=== PATIENT | male | born 1975 | race Caucasian/White ===

== ENCOUNTER 2019-05-07 07:42 | Emergency (ER) | payer OTHER ==
[~2019-05-07] VITALS: Ht 182.9 cm; Wt 91.0 kg
[2019-05-07] MEDS ORDERED: SODIUM CHLORIDE 0.9% 1,000 ML IV ONE (09:01)
[2019-05-07] MEDS ORDERED: KETOROLAC 30MG/ML VIAL IV ONE (09:15)
[2019-05-07 09:35] LABS: BASOPHILS % 0.3 % (0.0-2.0); EOSINOPHILS % 1.8 % (0.0-5.0); HEMATOCRIT. 40.2 % (42.0-52.0); HEMOGLOBIN. 13.9 g/dL (14.0-18.0); LYMPHOCYTES % 9.9 % (20.0-50.0); MEAN CORPUSCULAR HEMOGLOBIN 30.8 pg (28.0-32.0); MEAN CORPUSCULAR VOLUME 89.1 fL (80.0-94.0); MEAN PLATELET VOLUME 10.1 fl (7.4-10.4); MONOCYTES % 6.5 % (2.0-8.0); NEUTROPHILS % 81.5 % (40.0-76.0); PLATELET 171 x1000/uL (130-400); RED BLOOD CELL COUNT 4.51 mill/uL (4.7-6.1); RED CELL DISTRIBUTION WIDTH 13.6 % (11.6-14.6)
[2019-05-07 09:42] LABS: CHLORIDE 107 mEq/L (98-107)
[2019-05-07 09:46] LABS: ETHANOL BLOOD 108 mg/dL
[2019-05-07] MEDS ORDERED: IOHEXOL-350 100 ML BOTTLE ONE (10:52)
[2019-05-07] MEDS ORDERED: ASPIRIN 81MG TABLET PO ONE (11:30)
[2019-05-07] MEDS ORDERED: SODIUM CHLORIDE 0.45% 1,000 ML IV SCH (11:43)
[2019-05-07] MEDS ORDERED: DIPHENHYDRAMINE 50MG/ML VIAL IV PRN (11:45)
[2019-05-07] MEDS ORDERED: LORAZEPAM 2MG/ML CPJ IV PRN (11:45)
[2019-05-07] MEDS ORDERED: DOCUSATE SODIUM 100MG CAPSULE PO PRN (11:45)
[2019-05-07] MEDS ORDERED: HYDROCODONE/ACETAMINOPHEN 5/325MG TABLET PO PRN (11:45)
[2019-05-07] MEDS ORDERED: MAGNESIUM/ALUMINUM HYDROXIDE/SIMETHICONE 30ML UDC PO PRN (11:45)
[2019-05-07] MEDS ORDERED: GUAIFENESIN 200MG/10ML SUGAR FREE UDC PO PRN (11:45)
[2019-05-07] MEDS ORDERED: CLONIDINE 0.1MG TABLET PO PRN (11:45)
[2019-05-07] MEDS ORDERED: ENOXAPARIN 40MG/0.4ML SYR SUBCUT SCH (11:45)
[2019-05-07] MEDS ORDERED: NA PHOS,M-B/NA PHOS,DI-BA ENEMA 118ML PR PRN (11:45)
[2019-05-07] MEDS ORDERED: ACETAMINOPHEN 325MG TABLET PO PRN (11:45)
[2019-05-07] MEDS ORDERED: ONDANSETRON HCL 4MG/2ML INJ IV PRN (11:45)
[2019-05-07] MEDS ORDERED: MORPHINE SULFATE 2 MG/ML CPJ (NOT FOR IM USE) IV PRN (11:45)
[2019-05-07] MEDS ORDERED: IPRATROPIUM/ALBUTEROL 0.5-3(2.5)MG/3ML NEB NEB PRN (11:45)
[2019-05-07 12:15] LABS: *AMPHETAMINES SCREEN URINE NEGATIVE (NEGATIVE); *BARBITURATES SCREEN URINE NEGATIVE (NEGATIVE); *BENZODIAZEPINES SCREEN URINE NEGATIVE (NEGATIVE); *COCAINE SCREEN URINE NEGATIVE (NEGATIVE); METHADONE URINE SCREEN NEGATIVE (NEGATIVE); OPIATES URINE SCREEN NEGATIVE (NEGATIVE)
[2019-05-07 12:16] LABS: CANNABINOID URINE SCREEN PRESUMTIVE POSITIVE (NEGATIVE); PHENCYCLIDINE URINE SCREEN NEGATIVE (NEGATIVE)
[2019-05-07 13:10] VITALS: BP 112/79
[2019-05-08] MEDS ORDERED: ASPIRIN 81MG EC TABLET PO SCH (09:00)
== END 2019-05-07 13:42 | disposition left against medical advice (07) ==
LOC: ER 07:42 → EDBEDREQ 11:14 → ER 13:42 → ENRESERV 14:46 → CANBEDREQ 17:18
DX: R07.89 Other chest pain (principal); R55 Syncope and collapse; R42 Dizziness and giddiness; Z98.890 Other specified postprocedural states
CPT/HCPCS: 36415; 70450; 71045; 71275; 80053; 80305; 80320; 83690; 83880; 84484; 85025; 93005; 96361; 96374; 99291; J1885; J7030; Q9967; G0480